=== PATIENT | female | born 1965 | race Two or more races ===

== ENCOUNTER 2024-01-29 10:10 | Outpatient (CLI) | payer OTHER ==
[2024-01-29 11:18] LABS: HEMATOCRIT 41.7 % (36.0-45.00); HEMOGLOBIN 13.8 g/dL (12.0-15.00); MEAN CELL VOLUME 80.1 fL (80.00-100.00); MEAN CORPUSCULAR HEMOGLOBIN 26.5 pg (27.00-32.0); MEAN CORPUSCULAR HGB CONC 33.1 g/dl (32.0-36.0); PLATELET COUNT 295 K/uL (150-450); RED BLOOD COUNT 5.21 M/uL (4.00-6.00); RED CELL DISTRIBUTION WIDTH 14.8 % (11.5-14.5)
[2024-01-29 11:39] LABS: PH,URINE 7.5 (5.0-8.0); URINE APPEARANCE Clear; URINE BILIRRUBIN Negative (NEGATIVE); URINE BLOOD Negative; URINE COLOR Yellow; URINE GLUCOSE Negative (NEGATIVE); URINE KETONE Negative (NEGATIVE); URINE LEUKOCYTE Trace; URINE NITRATE Negative; URINE PROTEIN Negative (NEGATIVE); URINE UROBILINOGEN 0.2 E.U./dl
[2024-01-29 11:43] LABS: URINE BACTERIA 458.5 uL (0.0-1933); URINE EPITHELIAL CELLS 14.6 uL (0.0-38.8); URINE WBC 9.4 uL (0.0-23.2)
[2024-01-29 11:44] LABS: URINE CAST 0.15 uL (0.0-1.40)
[2024-01-29 11:58] LABS: ALBUMIN 4.2 gm/dL (3.4-5.0); BILIRUBIN TOTAL 0.49 mg/dL (0.3-1.2); CALCIUM 9.7 mg/dL (8.5-10.1); CREATININE SERUM 0.59 mg/dL (0.55-1.02); GFR 104.32; GLOBULINA 3.2 G/DL (2.4-3.5); POTASSIUM 4.38 mEq/L (3.5-5.1); TOTAL PROTEIN 7.4 gm/dL (6.4-8.2); TSH 1.92 uIU/mL (0.358-3.74)
== END 2024-01-29 10:13 | disposition home or self-care (01) ==
LOC: LAB 10:10
PROVIDERS: ATTEND General Practice
DX: D64.89 Other specified anemias (principal); N39.0 Urinary tract infection, site not specified; I11.9 Hypertensive heart disease without heart failure

== ENCOUNTER 2024-10-04 08:54 | Outpatient (CLI) | payer OTHER | END 2024-10-04 09:06 | disposition home or self-care (01) | LOC: MAMO-SONO 08:54 | PROVIDERS: ATTEND Obstetrics & Gynecology Gynecology | DX: N64.59 Other signs and symptoms in breast (principal); Z12.31 Encounter for screening mammogram for malignant neoplasm of breast; R10.2 Pelvic and perineal pain ==

== ENCOUNTER 2024-10-09 09:59 | Outpatient (CLI) | payer OTHER ==
[2024-10-09 10:44] LABS: URINE APPEARANCE Clear; URINE BILIRRUBIN Negative (NEGATIVE); URINE BLOOD Negative; URINE COLOR Yellow; URINE GLUCOSE Negative (NEGATIVE); URINE KETONE Negative (NEGATIVE); URINE LEUKOCYTE Small; URINE NITRATE Negative; URINE PROTEIN Negative (NEGATIVE); URINE UROBILINOGEN 0.2 E.U./dl
[2024-10-09 10:46] LABS: URINE BACTERIA 1114.7 uL (0.0-1933); URINE EPITHELIAL CELLS 29.9 uL (0.0-38.8); URINE RBC 2.1 uL (0.0-20.8); URINE WBC 18.1 uL (0.0-23.2)
[2024-10-09 10:47] LABS: BASO % 0.9 % (0.1-1.2); EOS # 0.13 (0.04-0.54); EOS % 2.0 % (0.7-7.0); LYMPH # 2.67 (1.18-3.74); LYMPH % 42.0 % (19.3-53.1); MEAN PLATELET VOLUME 10.20 fl (9.4-12.4); MONO # 0.47 (0.24-0.82); MONO % 7.4 % (4.7-12.5); NEUT # 3.01 (1.56-6.13); NEUT % 47.4 % (34.0-71.1); RED CELL DISTRIBUTION WIDTH 14.6 % (11.6-14.4)
[2024-10-09 10:51] LABS: URINE CAST 0.43 uL (0.0-1.40)
[2024-10-09 11:55] LABS: ALT/SGPT 29.0 U/L (12-78); AST/SGOT 13.0 U/L (15-37); BILIRUBIN TOTAL 0.29 mg/dL (0.3-1.2); BUN CREA RATIO 31.0 (7.0-25.0); CHOL HDL RATIO 3.9 (0-5.0); CREATININE SERUM 0.58 mg/dL (0.55-1.02); GFR 106.04; GLOBULINA 3.3 G/DL (2.4-3.5); GLUCOSE FASTING 95.0 mg/dL (65-100); HDL 59.0 mg/dl (40-60); LDL 143.0 mg/dl (0-130); OSMOLALITY SERUM 285.0 MOSM/KG (275-295); TSH 2.96 uIU/mL (0.358-3.74); VLDL 28.0 (0-39)
== END 2024-10-09 10:02 | disposition home or self-care (01) ==
LOC: LAB 09:59
DX: D64.89 Other specified anemias (principal); N39.0 Urinary tract infection, site not specified; E11.9 Type 2 diabetes mellitus without complications; E78.2 Mixed hyperlipidemia; E03.4 Atrophy of thyroid (acquired); E55.9 Vitamin D deficiency, unspecified; Z12.11 Encounter for screening for malignant neoplasm of colon; I11.9 Hypertensive heart disease without heart failure